=== PATIENT | male | born 1970 | race Caucasian/White ===

== ENCOUNTER 2019-05-11 11:36 | Emergency (ER) | payer BC, MEDICAID ==
[~2019-05-11] VITALS: Ht 182.9 cm; Wt 142.9 kg
[2019-05-11] MEDS ORDERED: TELM80TA9 PO (11:57)
[2019-05-11] MEDS ORDERED: CANA300T PO (11:57)
[2019-05-11] MEDS ORDERED: SITA100T PO (11:57)
[2019-05-11] MEDS ORDERED: ATOR40TA PO (11:57)
[2019-05-11] MEDS ORDERED: TICA90TA PO (11:57)
[2019-05-11] MEDS ORDERED: METF-442 PO (11:57)
[2019-05-11] MEDS ORDERED: ABAC1TAB15 PO (11:57)
[2019-05-11] MEDS ORDERED: ASPI81TA31 PO (11:57)
[2019-05-11] MEDS ORDERED: NEOMY/BACITRA/POLYMYXIN B OINT UD PACKET TP ONE ×2 (12:12→12:15)
[2019-05-11] MEDS ORDERED: TDAP DIPH,PERTUSS,TET VAC/PF 0.5 ML DISP.SYRIN IM ONE ×2 (12:45→12:47)
[2019-05-11 13:12] VITALS: BP 154/66
--- NOTE | 2019-05-11 13:14 | NUR ---
L elbow cleansed with 1L ns and h202 and covered with triple abx ointment. superficial lac x 3 noted on elbow with circumfrential redness and hot to touch. cap refill csmw L arm good. covered with tegaderm, and guaze and secured with yamile. tulio wrap aplied to R ankle. R toes cap refill csmw good 15 min post application. pt toleratong pwb'ing and ambulating with a cane. advised rest. elevate r ankle ++ and fu pmd in 2 dys and return if symptoms increase change or persist
== END 2019-05-11 13:19 | disposition home or self-care (01) ==
LOC: ER 11:37
DX: S51.002A Unspecified open wound of left elbow, initial encounter (principal); S93.401A Sprain of unspecified ligament of right ankle, initial encounter; L08.9 Local infection of the skin and subcutaneous tissue, unspecified; E11.9 Type 2 diabetes mellitus without complications; E78.5 Hyperlipidemia, unspecified; Z79.82 Long term (current) use of aspirin; Z79.899 Other long term (current) drug therapy; Z95.1 Presence of aortocoronary bypass graft; W18.30XA Fall on same level, unspecified, initial encounter; Y93.89 Activity, other specified; Y92.89 Other specified places as the place of occurrence of the external cause; Y99.8 Other external cause status
CPT/HCPCS: 73030; 73080; 73610; 90715; A4217; A4663

== ENCOUNTER 2022-08-08 19:18 | Emergency (ER) | payer BC ==
[~2022-08-08] VITALS: Ht 182.9 cm; Wt 136.1 kg
[~2022-08-08 19:18] MED LIST: ABAC1TAB15 PO; ASPI81TA31 PO; ATOR40TA PO; CANA300T PO; METF-442 PO; SITA100T PO; TELM80TA9 PO; TICA90TA PO
[2022-08-08] MEDS ORDERED: OXYCODONE/APAP 5-325 MG TABLET ONE (19:55)
[2022-08-08] MEDS ORDERED: OXYCODONE/APAP 5-325 MG TABLET PO ONE (20:00)
[2022-08-08 20:27] VITALS: BP 120/80
[2022-08-08] MEDS ORDERED: OXYC-128 PO (20:34)
--- NOTE | 2022-08-08 21:01 | NUR ---
Patient discharged to home in stable condition. Written and verbal after care instructions given. Patient verbalizes understanding of instructions. Stressed follow up or return to ER for worsening s/s.
== END 2022-08-08 21:05 | disposition home or self-care (01) ==
LOC: ER 19:22
DX: S42.401A Unspecified fracture of lower end of right humerus, initial encounter for closed fracture (principal); W01.0XXA Fall on same level from slipping, tripping and stumbling without subsequent striking against object, initial encounter; Y92.89 Other specified places as the place of occurrence of the external cause; E78.5 Hyperlipidemia, unspecified; Z95.5 Presence of coronary angioplasty implant and graft; F17.210 Nicotine dependence, cigarettes, uncomplicated; E11.9 Type 2 diabetes mellitus without complications; Z79.84 Long term (current) use of oral hypoglycemic drugs; Z79.899 Other long term (current) drug therapy; Z79.82 Long term (current) use of aspirin
CPT/HCPCS: 73080; 73090; A4663